=== PATIENT | female | born 1975 | race Caucasian/White ===

== ENCOUNTER → 2017-05-08 | Outpatient (CLI) | payer BC ==
[~2017-05-08] MED LIST: MULT-513 PO
--- NOTE | 2017-05-08 15:58 | MAMMOGRAPHY REPORT ---
BILATERAL FIRST EVER DIGITAL SCREENING MAMMOGRAM TOMOSYNTHESIS WITH CAD: 05/08/2017 CLINICAL HISTORY: Routine screening. Baseline exam. TECHNIQUE: Breast tomosynthesis in addition to standard 2D mammography was performed. Current study was also evaluated with a Computer Aided Detection (CAD) system. COMPARISON: No prior exams were available for comparison. BREAST COMPOSITION: There are scattered areas of fibroglandular density in both breasts. FINDINGS: No suspicious spiculated or irregular mass, architectural distortion or cluster of suspici ous microcalcifications is seen. IMPRESSION: ACR BI-RADS CATEGORY 1: NEGATIVE There is no mammographic evidence of malignancy. A 1 year screening mammogram is recommended. The pa tient will receive written notification of the results. Approximately 10% of breast cancers are not detected with mammography. A negative mammographic report should not delay biopsy if a clinically suggestive mass is present. Cheyenne Horn M.D. ay/:05/08/2017 14:57:47 Mash Filter Cloth Changer: Linda QUIROZ(Jamel)(Sonny)([place]), [facility] letter sent: Normal 1/2 BI-RADS Code: ACR BI-RADS Category 1: Negative
== END | disposition home or self-care (01) ==
LOC: C.MAMM 14:20
PROVIDERS: ATTEND Physician Assistant
DX: Z12.31 Encounter for screening mammogram for malignant neoplasm of breast (principal)

== ENCOUNTER → 2018-05-10 | Outpatient (CLI) | payer BC ==
--- NOTE | 2018-05-13 07:44 | MAMMOGRAPHY REPORT ---
BILATERAL DIGITAL SCREENING MAMMOGRAM TOMOSYNTHESIS WITH CAD: 05/10/2018 CLINICAL HISTORY: Routine screening. Patient has no complaints. TECHNIQUE: The study was acquired using full field digital technology and interpreted from soft copy. Breast tomosynthesis in addition to standard 2D mammography was performed. Current study was also ev aluated with a Computer Aided Detection (CAD) system. COMPARISON: Comparison is made to exam dated: 05/08/2017 mammogram - [facility]. BREAST COMPOSITION: The tissue of both breasts is heterogeneously dense, which may obscure small mass es. FINDINGS: No suspicious masses, calcifications, or areas of architectural distortion are noted in either breast . IMPRESSION: ACR BI-RADS CATEGORY 1: NEGATIVE There is no mammographic evidence of malignancy. A 1 year screening mammogram is recommended.( 019) The patient will receive written notification of the results. Some breast cancers are not detected with mammography. A negative mammographic report should not adele y biopsy if a clinically suggestive mass is present. Kiera Dalal M.D. ah/:05/10/2018 14:35:30 Dye Beck Reel Operator: Viridiana Blevins, [facility] letter sent: Normal 1/2 BI-RADS Code: ACR BI-RADS Category 1: Negative
== END | disposition home or self-care (01) ==
LOC: C.MAMM 13:27
PROVIDERS: ATTEND Physician Assistant
DX: Z12.31 Encounter for screening mammogram for malignant neoplasm of breast (principal)

== ENCOUNTER 2020-09-13 05:57 | Observation (INO) ==
--- NOTE | 2020-09-02 14:54 | Anesthesiology Consultation ---
Date of Service September 02, 2020 Assessment & Plan (1) Encounter for pre-operative examination: COVID Status: As of 09/02 assessment, patient denies travel to endemic area, known exposure/sick contacts, or symptoms of COVID19. Patient instructed that they and their household members must follow strict social distancing guidelines, wear a mask in public and avoid travel/events/gatherings for 14 days prior to surgery. Preoperative COVID19 testing to be completed prior to surgery per surgeon's arrangements (09/07). Patient made aware to self-isolate as much as possible between COVID testing and surgery. HCG AM DOS Chart Review Chart Review: Acceptable Risk for Surgery (pending surgeon-ordered cardio clearance 09/06) and Patient seen in Pre Admission Testing Teaching & Discussion Instructed NPO after midnight before surgery, except medications with 15 cc of water. Medication instructions provided according to the PAT guidelines. History Surgery Operation Date: 09/13/20 08:50 Proposed Procedures p Robotic Rotal Laparoscopic Hysterectomy - Beverly Cantu MD Height/Weight Height: 5 ft 3 in Weight: 109.5 kg Allergies Allergy/AdvReac Type Severity Reaction Status Date / Time Bactrim Allergy Severe RASH Verified 10/21/15 16:05 sulfamethoxazole Allergy Severe RASH Verified 09/02/20 13:30 trimethoprim Allergy Severe RASH Verified 09/02/20 13:30 Medications Home Medications Medication Instructions Recorded Confirmed Last Taken sertraline 100 mg tablet 150 mg PO HS tab 05/14/19 09/02/20 Unknown levonorgestrel 20 mcg/24 hours (6 1 device IU UD ea 08/27/19 09/02/20 Unknown yrs) 52 mg intrauterine device ferrous sulfate 325 mg (65 mg 325 mg PO QPM 08/02/20 09/02/20 Unknown iron) tablet ascorbic acid (vitamin C) [Vitamin 1,000 mg PO HS 09/01/20 09/02/20 Unknown C] ezetimibe 10 mg PO HS 09/01/20 09/02/20 Unknown mirabegron 50 mg PO HS 09/01/20 09/02/20 Unknown multivitamin 1 tab PO HS 09/01/20 09/02/20 Unknown Past Medical History Medical History Depression History of anemia History of arthritis History of chicken pox Hyperlipidemia IUD (intrauterine device) in place Overactive bladder Right bundle branch block Exercise / Class Metabolic Activity II 4-5 Yardwork/Stairs/Walk up hill Past Family History Family History (Updated 09/02/20 @ 20:01 by Beverly Cantu MD) Grandmother (Maternal) Family history of diabetes mellitus Denies family history of Ovarian cancer Prostate cancer Clotting disorder Breast cancer Colorectal cancer Uterine cancer Past Surgical History Surgical History History of cholecystectomy S/P tubal ligation Past Anesthesia History No Hx of Anesthesia Complications and No Family Hx of Anesthesia Complications History of PONV No Hx of PONV and No Hx of Motion Sickness Social History Smoking Status: Former smoker tobacco type: cigarettes Smoking cigarettes per day: 20 Do You Dip or Chew Tobacco: No Smoking End Date: QUIT 2 MONTHS AGO Hx Alcohol Use: Yes Alcohol type: wine alcohol intake frequency: a few times a month Hx Substance Use: No Review of Systems Pt denies any recent chest pain, shortness of breath, palpitations, cough, fever, URI, or uncontrolled acid reflux. Physical Exam Vital Signs BP: 106/68 P: 100bpm SPO2: 97% RA T: 98.5 F R: 16 ENMT Mouth: no dental restorations, no chipped teeth and no loose teeth Thyromental Distance: > or= 3.5 Finger Breadths Mallampati Class: I Neck normal visual inspection; neck extension not limited Respiratory normal respiratory effort, lungs clear to auscultation Cardiovascular Rate/Rhythm: regular rhythm and + tachycardic Heart Sounds: no murmur Extremities: no pedal edema Testing Laboratory Results 09/02/20 14:53 09/02/20 14:53 Blood Type O Positive 09/02/20 14:53 Antibody Screen NEGATIVE 09/02/20 14:53 Electrocardiogram Date: 09/02/20 Findings: + NSR @ (93bpm) RBBB.
--- NOTE | 2020-09-02 14:56 | PAT Medication Instructions ---
Medication Instructions Date of Service September 02, 2020 Home Medications sertraline 100 mg tablet 150 mg PO HS levonorgestrel 20 mcg/24 hours (6 yrs) 52 mg intrauterine device 1 device IU UD ferrous sulfate 325 mg (65 mg iron) tablet 325 mg PO QPM ascorbic acid (vitamin C) 1,000 mg PO HS ezetimibe 10 mg PO HS mirabegron 50 mg PO HS multivitamin 1 tab PO HS Continue as directed levonorgestrel 20 mcg/24 hours (6 yrs) 52 mg intrauterine device 1 device IU UD Take evening before surgery sertraline 100 mg tablet 150 mg PO HS ferrous sulfate 325 mg (65 mg iron) tablet 325 mg PO QPM ascorbic acid (vitamin C) 1,000 mg PO HS ezetimibe 10 mg PO HS mirabegron 50 mg PO HS multivitamin 1 tab PO HS Other Notes If you have any questions please call us at [phone] or [phone] or [phone] or [phone]
--- NOTE | 2020-09-02 16:16 | Electrocardiogram Report ---
Test Reason : Blood Pressure : / mmHG Vent. Rate : 093 BPM Atrial Rate : 093 BPM P-R Int : 146 ms QRS Dur : 140 ms QT Int : 372 ms P-R-T Axes : 075 075 052 degrees QTc Int : 462 ms Normal sinus rhythm Right bundle branch block Abnormal ECG No previous ECGs available Confirmed by Gio Nvees ([id number]) on 09/02/2020 4:15:38 PM Referred By: Beverly Cantu Confirmed By:Gio Neves
[2020-09-02 16:28] LABS: Basophils # (auto) 0.02 K/uL (0-0.2); Basophils % (auto) 0.3 %; Eosinophils % (auto) 1.7 %; Hematocrit (blood only) 39.1 % (37-47); Immature Granulocytes # (auto) 0.02 K/uL (0.00-0.02); Immature Granulocytes % (auto) 0.3 %; Lymphocytes # (auto) 1.87 K/uL (1.2-3.4); Lymphocytes % (auto) 32.1 %; Mean Corpuscular Hemoglobin 31.3 pg (25-34); Mean Corpuscular Hgb Conc 33.2 g/dL (32-36); Mean Corpuscular Volume 94.2 fL (80-100); Mean Platelet Volume 11.1 fL (7.4-10.4); Monocytes # (auto) 0.35 K/uL (0.11-0.59); Neutrophils # (auto) 3.46 K/uL (1.4-6.5); Neutrophils % (auto) 59.6 %; Platelet Count 351 K/uL (130-400); RDW Coefficient of Variation 13.2 % (11.5-14.5); RDW Standard Deviation 45.7 fL (36.4-46.3); Red Blood Count 4.15 M/uL (4.2-5.4); White Blood Count 5.82 K/uL (4.8-10.8)
[2020-09-02 16:42] LABS: BUN Creatinine Ratio 15.5 (10-20); Calcium 9.1 mg/dl (8.5-10.1); Creatinine Clr Calc Pharmacy 101.4 ml/min; Est GFR (African American) 97.3; Est GFR (Non-African American) 83.9; Potassium 3.6 mmol/L (3.5-5.1)
[2020-09-13] MEDS ORDERED: ACETAMINOPHEN 500 MG TAB PO SCH (06:00)
[2020-09-13] MEDS ORDERED: LR 15ML/HR IV SCH (06:00)
[2020-09-13] MEDS ORDERED: HEPARIN SOD 5,000 UNIT/0.5 ML VIAL SC SCH (06:00)
[2020-09-13] MEDS ORDERED: PHENAZOPYRIDINE HCL 200 MG TAB PO SCH (06:00)
[2020-09-13] MEDS ORDERED: LACTATED RINGER'S 1,000 ML IV SCH ×2 (06:00→10:45)
[2020-09-13] MEDS ORDERED: ACETAMINOPHEN 1000 MG/100 ML IV IV ONE (06:39)
[2020-09-13] MEDS ORDERED: MIDAZOLAM HCL 1 MG/ML 2ML VIAL ONE (06:45)
[2020-09-13] MEDS ORDERED: fentaNYL citrate 100 MCG/2 ML VIAL ONE ×3 (06:45→09:02)
[2020-09-13 06:56] LABS: Basophils # (auto) 0.02 K/uL (0-0.2); Basophils % (auto) 0.4 %; Eosinophils # (auto) 0.15 K/uL (0-0.5); Eosinophils % (auto) 3.2 %; Hematocrit (blood only) 37.5 % (37-47); Hemoglobin 12.3 g/dL (12.0-16.0); Immature Granulocytes # (auto) 0.03 K/uL (0.00-0.02); Immature Granulocytes % (auto) 0.6 %; Lymphocytes # (auto) 1.77 K/uL (1.2-3.4); Lymphocytes % (auto) 38.1 %; Mean Corpuscular Hemoglobin 30.6 pg (25-34); Mean Corpuscular Volume 93.3 fL (80-100); Mean Platelet Volume 10.6 fL (7.4-10.4); Monocytes # (auto) 0.38 K/uL (0.11-0.59); Monocytes % (auto) 8.2 %; Neutrophils # (auto) 2.29 K/uL (1.4-6.5); Neutrophils % (auto) 49.5 %; Platelet Count 282 K/uL (130-400); RDW Coefficient of Variation 13.5 % (11.5-14.5); RDW Standard Deviation 45.9 fL (36.4-46.3); Red Blood Count 4.02 M/uL (4.2-5.4); White Blood Count 4.64 K/uL (4.8-10.8)
[2020-09-13] MEDS ORDERED: LIDOCAINE HCL 2% 2 ML VIAL/AMP(20MG/ML) INFIL ONE (06:56)
[2020-09-13] MEDS ORDERED: DEXAMETHASONE SOD INJ 4 MG/ML VIAL ONE (06:56)
[2020-09-13] MEDS ORDERED: PROPOFOL IV EMULSION 10 MG/ML 20 ML VIAL IV ONE (06:56)
[2020-09-13] MEDS ORDERED: ONDANSETRON INJ 2 MG/ML 2 ML VIAL ONE (06:56)
[2020-09-13] MEDS ORDERED: ROCURONIUM BROMIDE 10 MG/ML 5 ML VIAL IV ONE (06:56)
[2020-09-13] MEDS ORDERED: BUPIVACAINE 0.5 % 5 MG/1 ML MPF 30ML VIAL ONE (07:02)
[2020-09-13 07:14] LABS: Mean Corpuscular Hgb Conc 32.8 g/dL (32-36)
--- NOTE | 2020-09-13 07:17 | History & Physical Bridge Note ---
Date of Service September 13, 2020 History & Physical Bridge Note I have examined the patient, reviewed the History & Physical and in the interval since the performance of the History & Physical I have noted the following changes of clinical significance: no changes noted
[2020-09-13] MEDS ORDERED: HYDROmorphone INJ 2 MG/ML SYR/VIAL IV PRN (07:22)
[2020-09-13] MEDS ORDERED: fentaNYL citrate 100 MCG/2 ML VIAL IV PRN (07:22)
[2020-09-13] MEDS ORDERED: ePHEDrine sulfate 50 MG/ML AMP IV PRN (07:22)
[2020-09-13] MEDS ORDERED: ONDANSETRON INJ 2 MG/ML 2 ML VIAL IV PRN ×2 (07:22→10:31)
[2020-09-13] MEDS ORDERED: ATROPINE SULFATE 0.1 MG/ML 10ML SYR IV PRN (07:22)
[2020-09-13] MEDS ORDERED: PROMETHAZINE HCL 6.25 MG in SODIUM CHLORIDE 0.9% 50 ML IV PRN (07:22)
[2020-09-13] MEDS ORDERED: NEOSTIGMINE METHYLSULFATE 5 MG/5 ML SYR ONE (09:53)
[2020-09-13] MEDS ORDERED: GLYCOPYRROLATE 0.2 MG/ML VIAL ONE (09:53)
[2020-09-13] MEDS ORDERED: TISSEEL FIBRIN SEALANT 4ML TOP ONE (10:00)
--- NOTE | 2020-09-13 10:21 | Post Operative Brief Note ---
PG Immediate Post Op with CF Date of Surgery September 13, 2020 Pre & Post Diagnosis Operation Date: 09/13/20 07:30 Pre-Op Diagnosis: Menorrhagia Post-Op Diagnosis: Menorrhagia I identified the patient and participated in the time-out.: Yes Procedure Operation Date: 09/13/20 07:30 Actual Procedures p Robotic Assisted Total Laparoscopic Hysterectomy with Bilateral Salpingectomy, and Cystoscopy(Not Applicable) - Beverly Cantu MD Surgeon Beverly Cantu MD Process Analyst Luis Fernando Lebron MD Estimated Blood Loss 50 Findings See Below Enlarged boggy uterus with IUD but otherwise within normal limits. Bilateral fallopian tubes and ovaries were wnl. Moderate omental adhesions to the umbilicus. Small amount of filmy mesenteric adhesion to the L adnexa. Upper abdominal anatomy wnl. IUD was removed and thrown away. On cystoscopy, bladder dome w/o evidence of injury or suture. Efflux noted from ureters bilaterally Fluids 600ml fluids, UOP 100 by diego catheter Specimens Specimen Description: Permanent Specimen: A: Uterus, Cervix, Bilateral Fallopian Tubes Drains Diego Catheter (18 Fr diego catheter inserted by Dr. Cantu without difficulty. Draining orange colored urine, Anesthesia to monitor urine output. Diego catheter removed at end of case. ) Anesthesia Type General Complications none Disposition Accompanied Patient To Recovery: Yes Disposition: Recovery Room
[2020-09-13] MEDS ORDERED: PROMETHAZINE HCL 25 MG in SODIUM CHLORIDE 0.9% 50 ML IV PRN (10:31)
[2020-09-13] MEDS ORDERED: IBUPROFEN 600 MG TAB PO PRN (10:31)
[2020-09-13] MEDS ORDERED: KETOROLAC 30 MG/ML VIAL IV PRN (10:31)
[2020-09-13] MEDS ORDERED: oxyCODONE/ACETAMINOPHEN 5mg/325mg TAB PO PRN ×2 (10:31→10:36)
[2020-09-13] MEDS ORDERED: SIMETHICONE 80 MG CHEW PO PRN (10:31)
--- NOTE | 2020-09-13 10:51 | Operative Report ---
PG Post Operative Report Pre & Post Diagnosis Operation Date: 09/13/20 07:30 Pre-Op Diagnosis: Menorrhagia Post-Op Diagnosis: Menorrhagia I identified the patient and participated in the time-out.: Yes Procedure Operation Date: 09/13/20 07:30 Actual Procedures p Robotic Assisted Total Laparoscopic Hysterectomy with Bilateral Salpingectomy, and Cystoscopy(Not Applicable) - Beverly Cantu MD Surgeon Beverly Cantu MD Polls Or Surveys Interviewer Luis Fernando Lebron MD Estimated Blood Loss 50 Findings See Below Enlarged boggy uterus with IUD but otherwise within normal limits. Bilateral fallopian tubes and ovaries were wnl with fallopian tubes partially excised c/w prior tubal ligation. Moderate omental adhesions to the umbilicus. Small amount of filmy mesenteric adhesion to the L adnexa. Upper abdominal anatomy wnl. IUD was removed and thrown away. On cystoscopy, bladder dome w/o evidence of injury or suture. Efflux noted from ureters bilaterally. Tisseal was applied at the conclusion of the case Fluids 600ml fluids, UOP 100ml by diego catheter that was removed at the end of the case Specimens Uterus, cervix, bilateral fallopian tubes Drains None Anesthesia Type General Complications none Disposition Accompanied Patient To Recovery: Yes Disposition: Recovery Room Indications Olesya is a 45-year-old -0-1-2 with a history of abnormal uterine bleeding. She was first seen last year with complaints of anemia secondary to heavy and irregular menses. Pap was noted to be within normal limits at that time. She underwent transvaginal ultrasound demonstrating normal pelvic anatomy but thickened lining. Endometrial biopsy at that time demonstrated benign late secretory phase endometrium. She did have a Mirena IUD placed for management of her periods. Approximately a year later, she noted that her periods themselves had improved, however had constant bleeding. She rarely went a day without bleeding. Labs were within normal limits. Pelvic ultrasound again demonstrated normal pelvic anatomy with IUD in the correct position. She was counseled extensively regarding additional medical versus surgical management options and ultimately decided for definitive "opted for definitive surgical management. She did undergo endometrial biopsy prior to procedure which was again benign, pap was not indicated as it was negative last year. She did undergo cardiac clearance secondary to findings of right bundle branch block and was deemed a low risk. Description of Procedure The patient was taken to the operating room. She was placed in dorsal supine position. General endotracheal anesthesia was obtained without difficulty. Her legs placed in stirrups and arms tucked at the side with all pressure points padded. An OR time-out was performed confirming the patient and the procedure. HCG confirmed negative, ancef had been given. The abdomen, perineum and vagina prepped and draped in the usual sterile fashion. A Diego catheter was placed in the urinary bladder. A left upper quadrant stab incision was made with a scalpel. The Veress needle was then introduced with intraperitoneal placement confirmed with low opening CO2 pressure. The abdomen was then insufflated to a pressure of 15 mmHg. An optically guided 5 mm trocar was then placed in the LUQ and there was no evidence of vascular or bowel injury upon immediate inspection. The patient was placed in steep Trendelenburg position. The above listed f indings were then noted. The robotic accessory ports were placed under direct visualization in the right and left lower quadrants and scissors were used with cautery to carefully take down omental adhesions. The robotic camera port was then placed under direct visualization once adhesions had cleared. A [employer] uterine manipulator was placed under direct visualization. The robot was docked. The ureters were identified bilaterally. Attention was to the left round ligament which was identified, cauterized and divided. The left IP ligament was identified and avoided. The left utero-ovarian ligament was then identified, cauterized, and divided to meet the previously divided left round ligament. The left broad ligament was then taken down anteriorly until a bladder flap was initiated. This was carried across the bladder flap and up to the right round ligament. The right round ligament was identified, cauterized and divided. The right IP ligament was identified and avoided. The right utero-ovarian ligament was then identified, cauterized, and divided. The right broad ligament was carried caudally to meet the initiated bladder flap. The bladder flap was further developed to identify the cervicovaginal junction. The remaining posterior leaf of the left broad ligament was subsequently divided in order to skeletonize the left uterine artery. The left uterine artery was t hen serially cauterized and divided. Next, a colpotomy was performed after dissecting the bladder out of the field using electrocautery until the VCare was visualized and carried around the cervix circumferentially until the level of the right uterine artery, which was then serially cauterized and divided. Colpotomy was then completed with the electrocautery. The uterus and cervix were delivered in their entirety through the vagina. Attention was then returned to the remainder of the right fallopian tube which was grasped and serially cauterized and divided away from the ovary. This was e xcellently hemostatic. The same was performed on the contralateral side. Both tubes were then delivered through the vagina and handed off for pathology. The vaginal cuff was closed with an 0 V-Loc suture and doubled back on itself. Excellent reapproximation of the vagina and hemostasis was appreciated. Pedicles were reinspected and found to be hemostatic. The omentum was reexamined and there was a small area of oozing which was made hemostatic with cautery. Area of mesenteric adhesion was noted to be hemostatic as well. Tisseel was applied to the omentum, adhesion and the remainder of the pelvis. There was excellent hemostasis with abdomen insufflated and desufflated. Next, the robotic instruments were removed and the robot was undocked. Abdomen was desufflated. The Diego catheter was removed; cystoscopy was performed with 70-degree scope which demonstrated efflux of urine from bilateral ureteral orifices. There was also no evidence of suture within the bladder dome. Bladder was then drained, cystoscope was removed. Trocars were removed and the skin edges were reapproximated using 4-0 Vicryl and Dermabond. The patient tolerated the procedure well. Sponge, lap and instrument counts were correct x2 at the completion of the procedure. I attest to the content of the Intraoperative Record and any orders documented therein. Any exceptions are noted below. NUCLEAR TEST TECHNICIAN Major Procedure Codes Hysterectomy 34547 TLH <250g +S/O (bilateral salpingectomies, ovaries were retained bilaterally) Miscellaneous 19154 Cystoscopy
--- NOTE | 2020-09-13 10:59 | Anesthesiology Progress Note ---
Date of Service September 13, 2020 Anesthesia Post Procedure Vital Signs Vital Signs: Temp Pulse Pulse Resp BP BP Pulse Ox 09/13/20 10:55 76 17 144/82 H 98 09/13/20 10:45 77 12 143/82 H 99 09/13/20 10:35 82 15 144/83 H 100 09/13/20 10:26 36.5 C 101 H 16 136/87 98 09/13/20 06:17 37.2 C 92 H 20 166/93 H 98 Pain Intensity Abdomen: Pain Intensity: 3 Transfer of Care Handoff Completed per policy Notes Mental Status: alert / awake / arousable Patient Amnestic to Procedure: Yes Nausea / Vomiting: adequately controlled Pain: adequately controlled Airway Patency, RR, SpO2: stable & adequate BP & HR: stable & adequate Hydration State: stable & adequate Anesthetic Complications: no major complications apparent
--- NOTE | 2020-09-14 15:45 | Discharge Summary ---
Date of Service September 14, 2020 Admission HPI Per Admitting Provider 45 y/o w/ no significant LMP due to constant bleeding with hx tubal ligation and using Mirena IUD for period management presents for pre-op appt for robotic total laparoscopic hysterectomy, bilateral salpingectomy, cystoscopy. Today notes her bleeding has been better today but is still persistent since last visit. Did see her weight management doctors at [facility] earlier this week and they are ok with her proceeding with surgery. [facility] has appt with cardiology on Sunday for RBBB 06/2019 - first seen for anemia 2/2 heavy and irregular menses. Pap noted NILM. Subsequently underwent TVUS showing normal pelvic anatomy and thickened lining. Underwent EMB which demonstrated benign late secretory phase endometrium. 07/2019 - Mirena IUD placed for management of periods 07/2020 - presented to clinic as periods had initially improved following Mirena, however notes that bleeding became more constant after the first 6 months and is constantly bleeding every day. Does not have clotting or cramping but requires daily liner use due to persistent bleeding. Not heavy like previously, but more than spotting near daily. CBC, TSH were normal. 08/2020 - Pelvic US showed normal pelvic anatomy with IUD in the correct position. Counseled on medical and surgical management options extensively - not a candidate for OCPs due to tobacco use (notes recently quit though), declined POPs/depo. Discussed D&C/hysteroscopy, ablation, hysterectomy and pt opted for hysterectomy after extensive and detailed discussion. Admission Exam (Per Admitting) Constitutional well developed and well nourished; no acute distress Eyes PERRL, conjunctivae normal, anicteric sclerae Neck Thyroid: normal thyroid Respiratory normal respiratory effort, lungs clear to auscultation no labored breathing Cardiovascular RRR, no murmur, no edema Gastrointestinal (Abdomen) Inspection/Auscultation: abdomen normal to inspection; abdomen not distended Percussion/Palpation: abdomen soft; abdomen nontender and no guarding Psychiatric A+Ox3, euthymic affect Genitourinary Normal external genitalia Urethra midline, no masses Vaginal mucosa well estrogenized Cervix visualized w/o lesions or masses Uterus is midline and mobile on bimanual exam No adnexal masses or tenderness appreciated Discharge Data Procedures Performed Operation Date: 09/13/20 07:30 Actual Procedures p Robotic Assisted Total Laparoscopic Hysterectomy with Bilateral Salpingectomy, and(Not Applicable) - Beverly Cantu MD s Cystoscopy(Not Applicable) - Hunter Lebron MD, FACOG Hospital Course (1) Abnormal uterine bleeding: Pt underwent above listed procedure. Following procedure, she met discharge criteria and was stable for d/c on POD0 Coding Level of Care Code 99845 OBS Care - Discharge Diagnoses Abnormal uterine bleeding N93.9
== END 2020-09-13 17:30 | disposition home or self-care (01) ==
LOC: 4S2 05:57 → ASU 05:57